=== PATIENT | male | born 1935 | race Caucasian/White ===

== ENCOUNTER 2016-12-13 11:14 | Outpatient (CLI) | payer MEDICARE ==
--- NOTE | 2016-12-14 08:08 | XRAY Report ---
RIGHT KNEE, THREE VIEWS: 12/13/2016 CLINICAL HISTORY: Joint pain for six months. FINDINGS: Soft tissues demonstrate at least 10 small soft tissue ossifications within the medial pos terior aspect of the right knee. They vary in size from a few millimeters to 8 mm. They most likely represent small loose bodies. Minimal spurring is seen along the posterior superior aspect of the p atella. Mild medial joint space narrowing is noted. IMPRESSION: 1. MULTIPLE SMALL LOOSE BODIES ARE SEEN IN THE MEDIAL POSTERIOR ASPECT OF THE RIGHT KNEE. THEY VARY IN SIZE FROM A FEW MILLIMETERS TO 8 MM. 2. MILD OSTEOARTHRITIS IS NOTED OF THE RIGHT KNEE, ESPECIALLY THE MEDIAL FEMORAL COMPARTMENT. 18:9:06 JOB #: [id number] EXT JOB #:[id number]
== END 2016-12-13 11:15 | disposition home or self-care (01) ==
LOC: DI 11:14
PROVIDERS: ATTEND Internal Medicine
DX: M17.11 Unilateral primary osteoarthritis, right knee (principal); M23.41 Loose body in knee, right knee

== ENCOUNTER 2017-01-27 09:22 | Outpatient (CLI) | payer MEDICARE ==
[2017-01-27 13:12] LABS: BASOPHILS # (AUTO) 0.1 10^3/uL (0.0-0.1); EOSINOPHILS # (AUTO) 0.1 10^3/uL (0.0-0.7); EOSINOPHILS % (AUTO) 1.8 %; HCT - HEMATOCRIT 46.4 % (42.0-52.0); HGB - HEMOGLOBIN 15.7 g/dL (14.0-18.0); LYMPHOCYTES % (AUTO) 35.2 %; MEAN CORPUSCULAR HEMOGLOBIN 30.7 pg (27.0-31.0); MEAN CORPUSCULAR HGB CONC 33.8 g/dL (32.0-36.0); MEAN CORPUSCULAR VOLUME 90.8 fL (80.0-94.0); MEAN PLATELET VOLUME 8.2 fL (7.4-11.4); MONOCYTES # (AUTO) 0.6 10^3/uL (0.0-1.0); MONOCYTES % (AUTO) 10.3 %; NEUTROPHILS % (AUTO) 51.7 %; RED BLOOD COUNT 5.11 10^6/uL (4.70-6.10); UNCORRECTED WHITE BLOOD COUNT 5.8 x10^3/uL; WHITE BLOOD COUNT 5.8 x10^3/uL (4.8-10.8)
[2017-01-27 13:27] LABS: ALBUMIN/GLOBULIN RATIO 1.5 (1.0-2.2); BILIRUBIN,TOTAL 0.8 mg/dL (0.2-1.0); BUN - BLOOD UREA NITROGEN 20 mg/dL (6-20); CALCIUM 9.7 mg/dL (8.5-10.3); CARBON DIOXIDE - CO2 26 mmol/L (21-32); CHLORIDE 104 mmol/L (101-111); CHOL/HDL RATIO 6.3 (<5.0); CHOLESTEROL 232 mg/dL; CREATININE 1.1 mg/dL (0.6-1.2); GFR - MDRD 64 (>89); GLUCOSE 104 mg/dL (70-100); HDL CHOLESTEROL 37 mg/dL; POTASSIUM 4.2 mmol/L (3.5-5.0); SODIUM 138 mmol/L (135-145); TOTAL PROTEIN 7.6 g/dL (6.7-8.2); TRIGLYCERIDES 478 mg/dL
[2017-01-27 13:39] LABS: HEMOGLOBIN A1C 0.72 g/dL
[2017-01-27 13:49] LABS: LDL CHOLESTEROL,DIRECT 112 mg/dL
== END 2017-01-27 09:23 | disposition home or self-care (01) ==
LOC: LAB.R 09:22
PROVIDERS: ATTEND Internal Medicine
DX: Z12.5 Encounter for screening for malignant neoplasm of prostate (principal); I10 Essential (primary) hypertension; Z79.899 Other long term (current) drug therapy; E78.2 Mixed hyperlipidemia
CPT/HCPCS: 80053; 80061; 83036; 83721; 85025; G0103; 84153

== ENCOUNTER 2017-04-28 10:16 | Day surgery (SDC) | payer MEDICARE ==
[~2017-04-28 10:16] MED LIST: BRIMONIDINE 0.2% OPHTH DROPS 5 ML ONE; TIMOLOL 0.5% OPHTH DROPS ONE
[2017-04-28] MEDS: LACTATED RINGERS 500 ML IV ONE (10:29)
[2017-04-28] MEDS: PHENYLEPHRINE 2.5% OPHTH 2 ML DROPS ONE (10:34)
[2017-04-28] MEDS: CYCLOPENTOLATE 1% OPHTH DROPS 2 ML ONE (10:34)
[2017-04-28] MEDS: PROPARACAINE 0.5% OPHTH DROPS 15 ML ONE (10:34)
[2017-04-28] MEDS: KETOROLAC 0.45% OPHTH DROPS ONE (10:34)
[2017-04-28] MEDS ORDERED: MIDAZOLAM 2 MG/2 ML VIAL IVP ONE (11:25)
[2017-04-28] MEDS: PROPARACAINE 0.5% OPHTH DROPS 15 ML RIGHTEYE ONE (11:25)
[2017-04-28] MEDS: EPINEPHrine 1 MG/ML AMP IVP ONE (11:26)
[2017-04-28] MEDS: BRIMONIDINE 0.2% OPHTH DROPS 5 ML OPTH ONE (11:26)
[2017-04-28] MEDS: CHONDR SULF/HYALURONATE SYRINGE IO ONE (11:27)
[2017-04-28] MEDS: TRIAMCIN/MOXIFLOX/VANCO 1 ML VIAL IO ONE (11:27)
[2017-04-28] MEDS: BSS/LIDOCAINE/EPINEPHRINE 1 ML SYRINGE IO ONE (11:27)
[2017-04-28] MEDS: TIMOLOL 0.5% OPHTH DROPS OPTH ONE (11:27)
[2017-04-28 12:07] VITALS: BP 127/84
--- NOTE | 2017-04-28 12:38 | OPERATIVE REPORT ---
DATE OF SURGERY: 04/28/2017 00:00:00 PREOPERATIVE DIAGNOSIS: Complex, visually significant cataract, right eye. Complex due to the use of Flomax causing an unstable iris and a small pupil. A Malyugin ring was used to dilate and stabilize the iris. Cataract surgery was performed on his left eye in [address] Gr. POSTOPERATIVE DIAGNOSIS: Complex, visually significant cataract, right eye. Complex due to the use of Flomax causing an unstable iris and a small pupil. A Malyugin ring was used to dilate and stabilize the iris. Cataract surgery was performed on his left eye in [address] Gr. NAME OF PROCEDURE: Phacoemulsification posterior chamber intraocular lens implant, right eye. SURGEON: Cruz Pyle MD ANESTHESIA: Monitored anesthesia care. COMPLICATIONS: None. OPERATIVE INDICATIONS: This is an 81-year-old man with progressive vision loss in the right eye due to 3+ nuclear sclerotic and macular cataract. Best corrected visual acuity was 20/40 with glare to 20/630 in the right eye. Indications for surgery were difficulty driving in low light or at night, difficulty driving at night because of headlights from other vehicles and/or street lights, and difficulty with glare or bright lights in any situation. He was consented at length concerning the risks and benefits of cataract surgery after which he expressed a desire to proceed with surgery. OPERATIVE PROCEDURE: The patient was taken into OR #3 and placed under monitored anesthesia care. A surgical time-out was conducted confirming correct patient, correct procedure and correct surgical site. He was given topical anesthesia and then prepped and draped in the usual sterile fashion. The eye was entered at the 12 and 9 o'clock positions. Intracameral Shugarcaine was injected into the anterior chamber followed by Viscoat. A 7.0 mm Malyugin ring was then injected into the anterior chamber and engaged the pupil at 4 points to stabilize the iris. A continuous tear curvilinear capsulorrhexis was performed. The nucleus was hydrodissected and phacoemulsified. The cortex was evacuated using automated infusion and aspiration. Provisc was injected into the capsular bag and a 20.0 Diopter intraocular lens was inserted into the bag. The Malyugin ring was then disengaged from the pupil margin and removed from the anterior chamber. Approximately 0.7 mL of a mixture of triamcinolone, moxifloxacin, and vancomycin was injected subconjunctivally in the superior quadrant for infection and inflammation prophylaxis. I/A was used to evacuate the viscoelastic materials. The eye was inflated to physiologic pressure using balanced salt solution and found to be watertight. The patient was taken from the operating room in good condition and given postoperative instructions. JOB #: [id number] EXT JOB #:[id number] MTDTerri
== END 2017-04-28 10:17 | disposition home or self-care (01) ==
LOC: SDS 10:16
PROVIDERS: ATTEND Ophthalmology
PROC: 08RJ3JZ Replacement of Right Lens with Synthetic Substitute, Percutaneous Approach (ICD-10-PCS; principal; 2017-04-28 11:30)
DX: H25.11 Age-related nuclear cataract, right eye (principal); N40.0 Benign prostatic hyperplasia without lower urinary tract symptoms; H40.1130 Primary open-angle glaucoma, bilateral, stage unspecified; Z79.899 Other long term (current) drug therapy
CPT/HCPCS: 66982; A9270; J3490; V2632

== ENCOUNTER 2018-02-22 09:30 | Outpatient (CLI) | payer MEDICARE ==
[2018-02-22 17:25] LABS: BASOPHILS % (AUTO) 0.9 %; EOSINOPHILS # (AUTO) 0.1 10^3/uL (0.0-0.7); EOSINOPHILS % (AUTO) 2.2 %; HGB - HEMOGLOBIN 15.9 g/dL (14.0-18.0); LYMPHOCYTES # (AUTO) 1.9 10^3/uL (1.5-3.5); LYMPHOCYTES % (AUTO) 36.4 %; MEAN CORPUSCULAR HEMOGLOBIN 30.9 pg (27.0-31.0); MEAN CORPUSCULAR HGB CONC 33.6 g/dL (32.0-36.0); MONOCYTES # (AUTO) 0.5 10^3/uL (0.0-1.0); MONOCYTES % (AUTO) 9.5 %; NEUTROPHILS # (AUTO) 2.7 10^3/uL (1.5-6.6); PLT - PLATELET COUNT 180 10^3/uL (130-450); RED BLOOD COUNT 5.14 10^6/uL (4.70-6.10); RED CELL DISTRIBUTION WIDTH 14.4 % (12.0-15.0); WHITE BLOOD COUNT 5.2 x10^3/uL (4.8-10.8)
[2018-02-22 17:45] LABS: ALBUMIN 4.4 g/dL (3.2-5.5); ALBUMIN/GLOBULIN RATIO 1.4 (1.0-2.2); ALKALINE PHOSPHATASE 54 IU/L (42-121); ALT ALANINE AMINOTRANSFERASE 27 IU/L (10-60); AST ASPARTATE AMINOTRANSFERASE 18 IU/L (10-42); BILIRUBIN,TOTAL 0.7 mg/dL (0.2-1.0); BUN - BLOOD UREA NITROGEN 24 mg/dL (6-20); CALCIUM 9.4 mg/dL (8.5-10.3); CARBON DIOXIDE - CO2 26 mmol/L (21-32); CHLORIDE 102 mmol/L (101-111); CHOL/HDL RATIO 5.9 (<5.0); CHOLESTEROL 224 mg/dL; CREATININE 1.1 mg/dL (0.6-1.2); GFR - MDRD 64 (>89); GLUCOSE 114 mg/dL (70-100); HDL CHOLESTEROL 38 mg/dL; LDL CHOLESTEROL,CALCULATED 110 mg/dL; LDL/HDL RATIO 2.9 (<3.6); SODIUM 135 mmol/L (135-145); TOTAL PROTEIN 7.6 g/dL (6.7-8.2); VLDL CHOLESTEROL 76 mg/dL
== END 2018-02-22 09:31 | disposition home or self-care (01) ==
LOC: LAB.F 09:30
PROVIDERS: ATTEND Internal Medicine
DX: I10 Essential (primary) hypertension (principal); N40.2 Nodular prostate without lower urinary tract symptoms; E78.5 Hyperlipidemia, unspecified; Z12.5 Encounter for screening for malignant neoplasm of prostate
CPT/HCPCS: 36415; 80053; 80061; 83721; 84153; 85025

== ENCOUNTER 2018-03-02 13:45 | Outpatient (CLI) | payer MEDICARE ==
[2018-03-02 18:49] LABS: HB2 TOTAL 16.5 g/dL; HEMOGLOBIN A1C 0.61 g/dL; HEMOGLOBIN A1C % 5.5 % (4.6-6.2)
== END 2018-03-02 13:46 | disposition home or self-care (01) ==
LOC: LAB.F 13:45
PROVIDERS: ATTEND Internal Medicine
DX: R73.9 Hyperglycemia, unspecified (principal); E78.5 Hyperlipidemia, unspecified
CPT/HCPCS: 36415; 83036; 83721

== ENCOUNTER 2018-06-14 09:35 | Outpatient (CLI) | payer MEDICARE ==
[2018-06-14 11:59] LABS: BASOPHILS # (AUTO) 0.1 10^3/uL (0.0-0.1); BASOPHILS % (AUTO) 0.9 %; EOSINOPHILS # (AUTO) 0.1 10^3/uL (0.0-0.7); HGB - HEMOGLOBIN 15.1 g/dL (14.0-18.0); LYMPHOCYTES # (AUTO) 1.6 10^3/uL (1.5-3.5); MEAN CORPUSCULAR HEMOGLOBIN 30.5 pg (27.0-31.0); MEAN CORPUSCULAR HGB CONC 33.7 g/dL (32.0-36.0); MEAN CORPUSCULAR VOLUME 90.5 fL (80.0-94.0); MEAN PLATELET VOLUME 8.6 fL (7.4-11.4); MONOCYTES # (AUTO) 0.9 10^3/uL (0.0-1.0); MONOCYTES % (AUTO) 12.1 %; NEUTROPHILS # (AUTO) 4.7 10^3/uL (1.5-6.6); PLT - PLATELET COUNT 152 10^3/uL (130-450); RED BLOOD COUNT 4.97 10^6/uL (4.70-6.10); RED CELL DISTRIBUTION WIDTH 14.6 % (12.0-15.0); WHITE BLOOD COUNT 7.4 x10^3/uL (4.8-10.8)
[2018-06-14 12:15] LABS: ALBUMIN 4.2 g/dL (3.2-5.5); ALBUMIN/GLOBULIN RATIO 1.3 (1.0-2.2); BILIRUBIN,TOTAL 0.8 mg/dL (0.2-1.0); CALCIUM 9.1 mg/dL (8.5-10.3); CRP - C-REACTIVE PROTEIN 1.6 mg/dL (0-1.0); TOTAL PROTEIN 7.5 g/dL (6.7-8.2)
== END 2018-06-14 23:59 | disposition home or self-care (01) ==
LOC: LAB.R 09:35
PROVIDERS: ATTEND Physician Assistant Medical
DX: R11.0 Nausea (principal)
CPT/HCPCS: 80053; 83690; 85025; 85651; 86140

== ENCOUNTER 2018-06-28 08:00 | Outpatient (CLI) | payer MEDICARE | END 2018-06-28 23:59 | disposition home or self-care (01) | LOC: LAB.R 08:00 | PROVIDERS: ATTEND Physician Assistant Medical | DX: N30.00 Acute cystitis without hematuria (principal) | CPT/HCPCS: 87086; 87181 ==

== ENCOUNTER 2018-06-30 10:25 | Outpatient (CLI) | payer MEDICARE ==
[2018-06-30] MEDS ORDERED: IOVERSOL 320 50 ML VIAL ONE (10:44)
[2018-06-30] MEDS ORDERED: IOVERSOL 320 100 ML VIAL IVP ONE ×2 (10:44→12:00)
[2018-06-30] MEDS ORDERED: IOVERSOL 320 50 ML VIAL PO ONE (12:00)
--- NOTE | 2018-06-30 12:57 | CT Report ---
Reason: ELEVATED C-REACTIVE PROTEIN,NAUSEA WITH DRY HEAVES Procedure Date: 06/30/2018 Accession Number: [id number] / [id number] Procedure: CT - Abdomen/Pelvis W/ CPT Code: FULL RESULT: EXAM: CT ABDOMEN AND PELVIS EXAM DATE: 06/30/2018 11:45 AM. CLINICAL HISTORY: Elevated C-reactive protein, nausea with dry heaves. COMPARISONS: None. TECHNIQUE: Routine helical CT imaging was performed through the abdomen and pelvis. IV contrast: Opti-320 80 ml. Enteric contrast: Yes. Reconstructions: Coronal and sagittal. In accordance with CT protocol optimization, one or more of the following dose reduction techniques were utilized for this exam: automated exposure control, adjustment of mA and/or KV based on patient size, or use of iterative reconstructive technique. FINDINGS: Lung Bases: Unremarkable. Liver: Normal. No masses. Gallbladder/Bile Ducts: Status post cholecystectomy. Spleen: Normal. Pancreas: Normal. Adrenal Glands: Normal. Kidneys: Bilateral renal cysts and hypodensities which are too small to characterize. No hydronephrosis. Peritoneal Cavity/Bowel: Sigmoid diverticulosis without diverticulitis. No free fluid, free air or adenopathy. No masses or acute inflammatory process. What is felt to represent the appendix is well visualized and normal. Pelvic Organs: There is marked prostatic hypertrophy with distention of the urinary bladder suggestive of the possibility of bladder outlet obstruction, 9.0 x 6.7 x 5.4 cm. The patient is likely status post plug mesh repair of a prior left inguinal hernia. There is sigmoid diverticulosis without diverticulitis. The bladder and visualized pelvic organs are within normal limits. Vasculature: Atherosclerosis without calderon aneurysm. Bones: No significant abnormality. Other: None. IMPRESSION: Marked prostatic hypertrophy, question bladder outlet obstruction. Correlate to symptomatology. RADIA
== END 2018-06-30 10:26 | disposition home or self-care (01) ==
LOC: DI 10:25
PROVIDERS: ATTEND Physician Assistant Medical
DX: N40.0 Benign prostatic hyperplasia without lower urinary tract symptoms (principal)
CPT/HCPCS: 74177; Q9967

== ENCOUNTER 2018-07-06 13:18 | Emergency (ER) | payer MEDICARE ==
--- NOTE | 2018-07-06 17:38 | ED Physician Documentation ---
History of Present Illness - Stated complaint Stated Complaint: DR GOMES - Chief complaint Chief Complaint: Abd Pain - History obtained from History obtained from: Patient - History of Present Illness Timing: How many days ago (several days ago) Pain level max: 2 Pain level now: 0 Improved by: nothing Worsened by: nothing - Additonal information Additional information: Patient is an 83-year-old male with left inguinal swelling. States he is concerned about a hernia. States occasionally has discomfort, none currently. States he told his doctor who told him to come to the emergency department. No vomiting. No pain. Review of Systems Ten Systems: 10 systems reviewed and negative Constitutional: denies: Fever, Chills Ears: denies: Ear pain Nose: denies: Rhinorrhea / runny nose, Congestion Throat: denies: Sore throat Cardiac: denies: Chest pain / pressure Respiratory: denies: Cough GI: denies: Abdominal Pain, Nausea, Vomiting, Diarrhea Skin: denies: Rash Musculoskeletal: denies: Neck pain, Back pain Neurologic: denies: Headache PD PAST MEDICAL HISTORY - Past Medical History Cardiovascular: None Respiratory: None Endocrine/Autoimmune: None GI: None : Benign prostate hypertrophy HEENT: Glaucoma Psych: None Musculoskeletal: Osteoarthritis Derm: None - Past Surgical History General: Cholecystectomy, Colonoscopy - Present Medications Home Medications: Ambulatory Orders Medication Instructions Recorded Confirmed Brimonidine 0.1% Ophth Drops 75 drops EACHEYE DAILY 04/27/17 04/27/17 [Alphagan P 0.1% Ophth Drops] Finasteride [Propecia] 5 mg PO DAILY 04/27/17 04/27/17 Tamsulosin [Flomax] 0.4 mg PO DAILY 04/27/17 04/27/17 Timolol 0.25% Ophth Drops 75 drops EACHEYE DAILY 04/27/17 04/27/17 [Timoptic 0.25% Ophth Drops] - Allergies Allergies/Adverse Reactions: Allergies Allergy/AdvReac Type Severity Reaction Status Date / Time No Known Drug Allergies Allergy Verified 07/06/18 14:00 PD ED PE NORMAL - Vitals Vital signs reviewed: Yes - General General: Alert and oriented X 3, No acute distress - HEENT HEENT: Moist mucous membranes - Cardiac Cardiac: RRR - Respiratory Respiratory: No respiratory distress, Clear bilaterally - Abdomen Abdomen: Soft, Non tender, Non distended - Male Male : Other (Left inguinal hernia, easily reduced. No pain) - Derm Derm: Warm and dry - Neuro Neuro: Alert and oriented X 3 Results - Vitals Vitals: Vital Signs - 24 hr 07/06/18 07/06/18 07/06/18 13:58 16:14 17:42 Temperature 36.7 C 36.4 C L 36.6 C Heart Rate 52 L 57 L 62 Respiratory 18 12 18 Rate Blood Pressure 118/66 152/59 H 128/90 H O2 Saturation 100 98 97 Oxygen O2 Source Room air PD MEDICAL DECISION MAKING - ED course Complexity details: considered differential, d/w patient ED course: Patient with an easily reducible left inguinal hernia. No evidence of incarceration or strangulation. We will have him follow-up with his doctor for further care. Patient counseled regarding signs and symptoms for which I believe and urgent re-evaluation would be necessary. Patient with good understanding of and agreement to plan and is comfortable going home at this time This document was made in part using voice recognition software. While efforts are made to proofread this document, sound alike and grammatical errors may occur. Departure - Departure Disposition: 01 Home, Self Care Clinical Impression: Inguinal hernia, left Condition: Good Instructions: ED Hernia Inguinal Follow-Up: Marcial Bolton MD [Primary Care Provider] - Kole Nath MD [Provider Admit Priv/Credential] - Within 1 week Comments: follow up with your doctor for further care. Return if you worsen especially for severe pain. Discharge Date/Time: 07/06/18 17:56
[2018-07-06 17:47] VITALS: BP 128/90
== END 2018-07-06 17:56 | disposition home or self-care (01) ==
LOC: ED 13:18
DX: K40.90 Unilateral inguinal hernia, without obstruction or gangrene, not specified as recurrent (principal)
CPT/HCPCS: 99283

== ENCOUNTER 2018-07-12 14:38 | Outpatient (CLI) | payer MEDICARE ==
[2018-07-12 14:54] LABS: BASOPHILS # (AUTO) 0.1 10^3/uL (0.0-0.1); BASOPHILS % (AUTO) 1.1 %; EOSINOPHILS # (AUTO) 0.2 10^3/uL (0.0-0.7); EOSINOPHILS % (AUTO) 3.8 %; HGB - HEMOGLOBIN 16.3 g/dL (14.0-18.0); LYMPHOCYTES # (AUTO) 1.9 10^3/uL (1.5-3.5); LYMPHOCYTES % (AUTO) 33.8 %; MEAN CORPUSCULAR HGB CONC 32.3 g/dL (32.0-36.0); MEAN CORPUSCULAR VOLUME 92.7 fL (80.0-94.0); MEAN PLATELET VOLUME 7.5 fL (7.4-11.4); MONOCYTES # (AUTO) 0.5 10^3/uL (0.0-1.0); MONOCYTES % (AUTO) 8.5 %; NEUTROPHILS % (AUTO) 52.8 %; PLT - PLATELET COUNT 174 10^3/uL (130-450); RED BLOOD COUNT 5.44 10^6/uL (4.70-6.10); RED CELL DISTRIBUTION WIDTH 14.5 % (12.0-15.0); WHITE BLOOD COUNT 5.6 x10^3/uL (4.8-10.8)
[2018-07-12 15:27] LABS: ALBUMIN 4.6 g/dL (3.2-5.5); ALBUMIN/GLOBULIN RATIO 1.3 (1.0-2.2); BILIRUBIN,TOTAL 0.9 mg/dL (0.2-1.0); CALCIUM 9.9 mg/dL (8.5-10.3); CREATININE 0.9 mg/dL (0.6-1.2); TOTAL PROTEIN 8.1 g/dL (6.7-8.2)
[2018-07-12 15:38] LABS: BILIRUBIN,URINE NEGATIVE (NEGATIVE); GLUCOSE, URINE (UA) NEGATIVE (NEGATIVE); KETONES,URINE (UA) NEGATIVE (NEGATIVE); LEUKOCYTE ESTERASE, URINE NEGATIVE (NEGATIVE); NITRITE,URINE NEGATIVE (NEGATIVE); OCCULT BLOOD,URINE NEGATIVE (NEGATIVE); PROTEIN,URINE NEGATIVE (NEGATIVE); UROBILINOGEN,URINE 0.2 (NORMAL) E.U./dL (NORMAL)
[2018-07-12 16:04] LABS: BACTERIA,URINE None Seen /HPF (None Seen); CLARITY,URINE CLEAR (CLEAR); RBC,URINE None Seen /HPF (0-5); SQUAMOUS EPITHELIAL CELL,UR NONE SEEN (<= Few)
== END 2018-07-12 14:39 | disposition home or self-care (01) ==
LOC: LAB 14:38
PROVIDERS: ATTEND Internal Medicine Gastroenterology
DX: N39.0 Urinary tract infection, site not specified (principal); N40.0 Benign prostatic hyperplasia without lower urinary tract symptoms; K40.90 Unilateral inguinal hernia, without obstruction or gangrene, not specified as recurrent; H40.9 Unspecified glaucoma; I10 Essential (primary) hypertension
CPT/HCPCS: 36415; 80053; 81001; 85025; 87086; 93005

== ENCOUNTER 2018-07-31 07:19 | Day surgery (SDC) | payer MEDICARE ==
[2018-07-31] MEDS ORDERED: BUPIVACAINE 0.5% PF 30 ML VIAL ONE (07:23)
[2018-07-31] MEDS ORDERED: LIDOCAINE 1%-EPI 1:100000 30 ML MDV ONE (07:23)
[2018-07-31] MEDS ORDERED: LACTATED RINGERS 1,000 ML IV ONE ×2 (07:24→09:40)
--- NOTE | 2018-07-31 07:33 | ANESTHESIA ---
Pre-Anesthesia VS, & Labs - Diagnosis L inguinal hernia - Procedure L inguinal hernia repair Height 5 ft 10 in Body Mass Index 23.6 - NPO >8 hours - Lab Results Lab results reviewed: Yes Home Medications and Allergies Home Medications: Ambulatory Orders Latanoprost 0.005% Ophth Drops [Xalatan Ophth Drops] 1 drops EACHEYE DAILY 07/14/18 Brimonidine 0.1% Ophth Drops [Alphagan P 0.1% Ophth Drops] 1 drops EACHEYE BID 04/27/17 Finasteride [Propecia] 5 mg PO DAILY 04/27/17 Tamsulosin [Flomax] 0.4 mg PO DAILY 04/27/17 Timolol 0.25% Ophth Drops [Timoptic 0.25% Ophth Drops] 1 drops EACHEYE DAILY 04/27/17 Glucosamine/Chondro Aguirre A [Glucosamine-Chondroitin Tab] 1 each PO BID 07/14/18 Latanoprost 0.005% Ophth Drops [Xalatan Ophth Drops] 1 drops EACHEYE DAILY 07/14/18 Allergies/Adverse Reactions: Allergies Allergy/AdvReac Type Severity Reaction Status Date / Time No Known Drug Allergies Allergy Verified 07/31/18 07:36 Anes History & Medical History - Anesthetic History Anesthesia Complications: reports: No previous complications Family history of Anesthesia Complications: Denies Family history of Malignant Hyperthermia: Denies - Medical History Cardiovascular: reports: None Pulmonary: reports: None Gastrointestinal: reports: GERD, Hiatal hernia, Colon polyps Urinary: reports: Benign prostate hypertrophy Musculoskeletal: reports: Osteoarthritis Endocrine/Autoimmune: reports: None Skin: reports: None Smoking Status: Never smoker - Surgical History General: Cholecystectomy, Colonoscopy Eyes Ears Nose Throat (EENT): Cataracts Exam General: Alert, Oriented x3, Cooperative Dental: WNL Mouth Openin Fingerbreadth Neck Mobility: Normal Mallampati classification: II Thyromental Distance: 4-6 cm Respiratory: Lungs clear, Normal breath sounds Cardiovascular: Regular rate Neurological: Normal speech Mental/Cognitive Status: Alert/Oriented X3, Normal for patient Plan Anesthesia Type: MAC Consent for Procedure(s) Verified and Reviewed: Yes Code Status: Attempt Resuscitation ASA classification: 2-Mild systemic disease Is this case an emergency?: No
[2018-07-31] MEDS ORDERED: ceFAZolin 2 GM/50 ML 2 GM/50 ML BAG IV ONE (07:34)
[2018-07-31] MEDS ORDERED: PROPOFOL 1000 MG/100 ML 100 ML IV ONE (08:30)
[2018-07-31] MEDS ORDERED: KETAMINE 500 MG/10 ML VIAL IVP ONE (08:30)
[2018-07-31] MEDS ORDERED: KETOROLAC 30 MG/ML VIAL IVP ONE (08:30)
[2018-07-31] MEDS ORDERED: MIDAZOLAM 2 MG/2 ML VIAL IVP ONE (08:30)
[2018-07-31] MEDS ORDERED: IBUPROFEN 600 MG TABLET PO PRN (10:48)
[2018-07-31] MEDS ORDERED: ACETAMINOPHEN 325 MG TABLET PO PRN (10:48)
[2018-07-31] MEDS ORDERED: oxyCODONE 5 MG TABLET PO PRN (10:48)
[2018-07-31] MEDS ORDERED: ONDANSETRON 4 MG/2 ML VIAL IVP PRN (10:48)
--- NOTE | 2018-07-31 11:19 | OPERATIVE REPORT ---
DATE OF SERVICE: 07/31/2018 Physician: Kole Nath MD PREOPERATIVE DIAGNOSIS: Symptomatic left inguinal hernia. POSTOPERATIVE DIAGNOSES 1. Symptomatic left inguinal hernia. 2. Left cord lipoma. PROCEDURES PERFORMED 1. Open repair of left inguinal hernia with polypropylene mesh. 2. Excision of left cord lipoma. ANESTHESIA: Local plus monitored anesthesia care by Ruslan Kline CRNA. SURGEON: Kole Nath MD ESTIMATED BLOOD LOSS: 10 mL. COMPLICATIONS: None. FINDINGS: Moderate-sized indirect left inguinal hernia was present. There was no evidence of direct or femoral hernia. A moderate sized cord lipoma was present. INDICATIONS: Patient is an 83-year-old gentleman with a recent onset of a painful reducible left groin bulge. Examination revealed a left inguinal hernia. He was advised to undergo repair under local anesthesia with sedation to minimize perioperative risk. PROCEDURE: After informed consent, the patient was taken to the operating room, where he was sedated and monitored. Preoperative preparation included application of sequential calf compression boots, administration of 2 grams of cefazolin intravenously within an hour of the incision. His left groin had been clipped, and was prepared with iodoform solution, following which a left groin block was instituted using a 50:50 combination of 1% lidocaine plain and 0.5% Marcaine with epinephrine. A total of 30 mL of the mixture was used. The left groin was then re-prepared with ChloraPrep solution and draped in the usual sterile fashion. A transverse incision was made in the skin lines of the left groin, beginning just above the left pubic tubercle and extending laterally approximately 5 cm. Hemostasis was achieved with electrocautery and 2-0 Vicryl ties. Incision was carried down through subcutaneous tissues until the external oblique aponeurosis was identified, and was incised along the lines of its fibers, in such a manner as to open the external ring and expose the internal ring. The ilioinguinal nerve was small and was divided to avoid injury and neuralgia. The spermatic cord was mobilized and encircled with a [place] drain. Spermatic cord was dissected, isolating the cord lipoma from surrounding cord structures, where it was excised with electrocautery and discarded. It measured approximately 4 cm in greatest dimension. The indirect sac was similarly dissected from surrounding cord structures to the level of the internal ring, where it was opened, and a finger inserted into the peritoneal cavity. to search for direct and femoral hernias was made, and none was identified. The hernia sac was twisted and doubly highly ligated with 3-0 silk suture ligatures. Excess hernia sac was amputated and discarded. After hemostasis was ensured, the wounds were irrigated with antibiotic solution containing 1 gram cefazolin per liter, following which a precut slotted Bard polypropylene mesh was soaked in antibiotic solution, then placed over the inguinal floor and secured in place circumferentially with continuous 3-0 Prolene suture, securing the mesh to the shelving edge of Poupart's ligament inferiorly, to the internal oblique aponeurosis superolaterally, and to the lateral border of the rectus sheath medially. Care was taken to avoid excessive tightening of the mesh around the cord at the level of the internal ring. After hemostasis was again ensured, the wound was again irrigated with antibiotic solution, following which wound closure was accomplished in layers using continuous 2-0 Vicryl to reapproximate the external oblique aponeurosis overlying the cord, followed by 3-0 Vicryl to reapproximate Antonio's fascia, followed by 4-0 Monocryl subcuticular skin closure, followed by Dermabond. The procedure was then terminated, and the patient transferred out of the operating room in satisfactory condition. Sponge and instrument counts were correct x2, and no drains were used. cc: Marcial Bolton MD TD: 07/31/2018 11:10 REVISED 08/02/2018 [email or web address] Transcrptn text correction Orig. signed 07/31/2018@1401 ROSIE
[2018-07-31 12:12] VITALS: BP 160/82
== END 2018-07-31 07:20 | disposition home or self-care (01) ==
LOC: SDS 07:19
PROVIDERS: ATTEND Internal Medicine Gastroenterology
PROC: 0VBG0ZZ Excision of Left Spermatic Cord, Open Approach (ICD-10-PCS; 2018-07-31)
PROC: 0YU60JZ Supplement Left Inguinal Region with Synthetic Substitute, Open Approach (ICD-10-PCS; principal; 2018-07-31 08:30)
DX: K40.90 Unilateral inguinal hernia, without obstruction or gangrene, not specified as recurrent (principal); D17.6 Benign lipomatous neoplasm of spermatic cord; N40.1 Benign prostatic hyperplasia with lower urinary tract symptoms; R35.1 Nocturia; K21.9 Gastro-esophageal reflux disease without esophagitis; K44.9 Diaphragmatic hernia without obstruction or gangrene; I10 Essential (primary) hypertension; H40.9 Unspecified glaucoma; M17.0 Bilateral primary osteoarthritis of knee; Z87.891 Personal history of nicotine dependence; Z87.440 Personal history of urinary (tract) infections
CPT/HCPCS: 49505; C1781; J0690; J7120

== ENCOUNTER 2020-05-22 08:33 | Outpatient (CLI) | payer MEDICARE ==
[2020-05-22 15:29] LABS: BASOPHILS # (AUTO) 0.1 10^3/uL (0.0-0.1); BASOPHILS % (AUTO) 1.3 %; EOSINOPHILS # (AUTO) 0.1 10^3/uL (0.0-0.7); EOSINOPHILS % (AUTO) 2.7 %; LYMPHOCYTES # (AUTO) 1.8 10^3/uL (1.5-3.5); LYMPHOCYTES % (AUTO) 33.8 %; MEAN CORPUSCULAR HEMOGLOBIN 31.6 pg (27.0-31.0); MEAN CORPUSCULAR HGB CONC 33.4 g/dL (32.0-36.0); MEAN CORPUSCULAR VOLUME 94.5 fL (80.0-94.0); MEAN PLATELET VOLUME 10.1 fL (7.4-11.4); MONOCYTES # (AUTO) 0.5 10^3/uL (0.0-1.0); MONOCYTES % (AUTO) 10.3 %; NEUTROPHILS # (AUTO) 2.7 10^3/uL (1.5-6.6); NEUTROPHILS % (AUTO) 51.7 %; PLT - PLATELET COUNT 174 10^3/uL (130-450); RED BLOOD COUNT 5.07 10^6/uL (4.70-6.10); RED CELL DISTRIBUTION WIDTH 13.8 % (12.0-15.0); WHITE BLOOD COUNT 5.3 x10^3/uL (4.8-10.8)
[2020-05-22 15:53] LABS: ALBUMIN 4.6 g/dL (3.2-5.5); ALBUMIN/GLOBULIN RATIO 1.5 (1.0-2.2); ALKALINE PHOSPHATASE 53 IU/L (42-121); ALT ALANINE AMINOTRANSFERASE 36 IU/L (10-60); AST ASPARTATE AMINOTRANSFERASE 25 IU/L (10-42); BILIRUBIN,TOTAL 0.5 mg/dL (0.2-1.0); BUN - BLOOD UREA NITROGEN 21 mg/dL (6-20); CALCIUM 9.9 mg/dL (8.5-10.3); CARBON DIOXIDE - CO2 27 mmol/L (21-32); CHLORIDE 102 mmol/L (101-111); CHOL/HDL RATIO 6.6 (<5.0); CHOLESTEROL 249 mg/dL; GLUCOSE 106 mg/dL (70-100); HDL CHOLESTEROL 38 mg/dL; LDL CHOLESTEROL,CALCULATED 136 mg/dL; LDL/HDL RATIO 3.6 (<3.6); SODIUM 137 mmol/L (135-145); TOTAL PROTEIN 7.7 g/dL (6.7-8.2); VLDL CHOLESTEROL 75 mg/dL
== END 2020-05-22 08:34 | disposition home or self-care (01) ==
LOC: LAB.S 08:33
PROVIDERS: ATTEND Internal Medicine
DX: I10 Essential (primary) hypertension (principal); N40.2 Nodular prostate without lower urinary tract symptoms
CPT/HCPCS: 36415; 80053; 80061; 83721; 84153; 85025

== ENCOUNTER 2020-12-12 08:00 | Outpatient (CLI) | payer MEDICARE ==
[2020-12-12 20:31] LABS: FECAL OCCULT BLOOD (FIT) POSITIVE (NEGATIVE)
== END 2020-12-12 23:59 | disposition home or self-care (01) ==
LOC: LAB.R 08:00
PROVIDERS: ATTEND Internal Medicine
DX: Z12.11 Encounter for screening for malignant neoplasm of colon (principal)
CPT/HCPCS: 82274

== ENCOUNTER 2021-03-27 07:20 | Day surgery (SDC) | payer MEDICARE ==
[~2021-03-27 07:20] MED LIST changes: -BRIMONIDINE 0.2% OPHTH DROPS 5 ML ONE; +PROPOFOL 500 MG/50 ML 500 MG/50 ML VIAL ONE; -TIMOLOL 0.5% OPHTH DROPS ONE
[2021-03-27] MEDS ORDERED: LACTATED RINGERS 1,000 ML IV ONE (07:27)
--- NOTE | 2021-03-27 08:30 | ANESTHESIA ---
Pre-Anesthesia VS, & Labs - Diagnosis hx polyps - Procedure colonoscopy Vital Signs: Temp Pulse Resp BP Pulse Ox 36.4 C L 60 16 149/94 H 100 03/27/21 07:28 03/27/21 07:28 03/27/21 07:28 03/27/21 07:28 03/27/21 07:28 Height: 5 ft 10 in Weight (kg): 71.7 kg Body Mass Index: 22.6 BMI Classification: Healthy weight - NPO >8 hours Home Medications and Allergies Home Medications: Ambulatory Orders Magnesium 1 tab PO DAILY 03/26/21 Brimonidine 0.1% Ophth Drops [Alphagan P 0.1% Ophth Drops] 1 drops EACHEYE BID 04/27/17 Finasteride [Propecia] 5 mg PO DAILY 04/27/17 Tamsulosin [Flomax] 0.4 mg PO DAILY 04/27/17 Timolol 0.25% Ophth Drops [Timoptic 0.25% Ophth Drops] 1 drops EACHEYE DAILY 04/27/17 Latanoprost 0.005% Ophth Drops [Xalatan Ophth Drops] 1 drops EACHEYE DAILY 07/14/18 Magnesium 1 tab PO DAILY 03/26/21 Allergies/Adverse Reactions: Allergies Allergy/AdvReac Type Severity Reaction Status Date / Time No Known Drug Allergies Allergy Verified 03/26/21 11:23 Anes History & Medical History - Anesthetic History Anesthesia Complications: reports: No previous complications Family history of Anesthesia Complications: Denies Family history of Malignant Hyperthermia: Denies - Medical History Cardiovascular: reports: None Pulmonary: reports: None Gastrointestinal: reports: None Urinary: reports: Benign prostate hypertrophy Musculoskeletal: reports: Other Endocrine/Autoimmune: reports: None Skin: reports: None Smoking Status: Never smoker - Surgical History General: reports: Cholecystectomy, Colonoscopy Eyes Ears Nose Throat (EENT): reports: Cataracts Exam General: Alert, Oriented x3, Cooperative Dental: WNL Mouth Openin Fingerbreadth Neck Mobility: Normal Mallampati classification: II Thyromental Distance: 4-6 cm Cardiovascular: Regular rate Neurological: Normal speech Mental/Cognitive Status: Alert/Oriented X3, Normal for patient Cognitive Status: Within normal limits Plan Anesthesia Type: Total IV Consent for Procedure(s) Verified and Reviewed: Yes Code Status: Attempt Resuscitation ASA classification: 2-Mild systemic disease Is this case an emergency?: No
[2021-03-27] MEDS ORDERED: MIDAZOLAM 2 MG/2 ML VIAL ONE (08:36)
[2021-03-27] MEDS ORDERED: ePHEDrine 50 MG/ML VIAL IVP ONE (08:49)
[2021-03-27] MEDS ORDERED: LACTATED RINGERS 600 ML IV ONE (09:09)
[2021-03-27 09:22] VITALS: BP 117/63
--- NOTE | 2021-03-27 14:03 | ANESTHESIA POST OP EVALUATION ---
Anesthesia Post Eval - Post Anesthesia Eval Vitals: Last Vital Signs Temp 36.7 C 03/27/21 09:09 Pulse 60 03/27/21 09:21 Resp 16 03/27/21 09:21 BP 117/63 03/27/21 09:21 Pulse Ox 98 03/27/21 09:21 CV Function Including HR & BP: Stable Pain Control: Satisfactory Nausea & Vomiting: Negative Mental Status: Baseline Respiratory Status: Airway Patent Hydration Status: Satisfactory Anesthesia Complications: None
== END 2021-03-27 07:21 | disposition home or self-care (01) ==
LOC: SDS 07:20
PROVIDERS: ATTEND Surgery
PROC: 0DBM8ZZ Excision of Descending Colon, Via Natural or Artificial Opening Endoscopic (ICD-10-PCS; 2021-03-27)
PROC: 0DBK8ZZ Excision of Ascending Colon, Via Natural or Artificial Opening Endoscopic (ICD-10-PCS; principal; 2021-03-27 08:30)
DX: R19.5 Other fecal abnormalities (principal); D12.4 Benign neoplasm of descending colon; D12.2 Benign neoplasm of ascending colon; K57.30 Diverticulosis of large intestine without perforation or abscess without bleeding; Z87.891 Personal history of nicotine dependence
CPT/HCPCS: 45380; 45385; J7120

== ENCOUNTER 2021-04-09 08:00 | Outpatient (CLI) | payer MEDICARE ==
[2021-04-09 14:30] LABS: BASOPHILS % (AUTO) 0.4 %; EOSINOPHILS # (AUTO) 0.1 10^3/uL (0.0-0.7); EOSINOPHILS % (AUTO) 1.4 %; HCT - HEMATOCRIT 45.2 % (42.0-52.0); HGB - HEMOGLOBIN 15.1 g/dL (14.0-18.0); LYMPHOCYTES # (AUTO) 2.1 10^3/uL (1.5-3.5); LYMPHOCYTES % (AUTO) 26.8 %; MEAN CORPUSCULAR HEMOGLOBIN 30.8 pg (27.0-31.0); MEAN CORPUSCULAR HGB CONC 33.4 g/dL (32.0-36.0); MEAN CORPUSCULAR VOLUME 92.2 fL (80.0-94.0); MEAN PLATELET VOLUME 9.9 fL (7.4-11.4); MONOCYTES # (AUTO) 0.8 10^3/uL (0.0-1.0); MONOCYTES % (AUTO) 10.7 %; NEUTROPHILS # (AUTO) 4.7 10^3/uL (1.5-6.6); NEUTROPHILS % (AUTO) 60.4 %; PLT - PLATELET COUNT 163 10^3/uL (130-450); RED CELL DISTRIBUTION WIDTH 13.2 % (12.0-15.0); WHITE BLOOD COUNT 7.7 x10^3/uL (4.8-10.8)
[2021-04-09 15:04] LABS: CALCIUM 9.5 mg/dL (8.5-10.3); CREATININE 0.9 mg/dL (0.6-1.2); URIC ACID 7.1 mg/dL (2.6-7.2)
== END 2021-04-09 23:59 | disposition home or self-care (01) ==
LOC: LAB.S 08:00
PROVIDERS: ATTEND Emergency Medicine
DX: M10.9 Gout, unspecified (principal)
CPT/HCPCS: 36415; 80048; 84550; 85025

== ENCOUNTER 2022-04-10 08:00 | Outpatient (CLI) | payer MEDICARE ==
[2022-04-10 18:20] LABS: BILIRUBIN,URINE NEGATIVE (NEGATIVE); GLUCOSE, URINE (UA) NEGATIVE (NEGATIVE); KETONES,URINE (UA) NEGATIVE (NEGATIVE); LEUKOCYTE ESTERASE, URINE TRACE (NEGATIVE); NITRITE,URINE NEGATIVE (NEGATIVE); OCCULT BLOOD,URINE NEGATIVE (NEGATIVE); PH,URINE 6.5 PH (5.0-7.5); PROTEIN,URINE NEGATIVE (NEGATIVE); UROBILINOGEN,URINE 0.2 (NORMAL) E.U./dL (NORMAL)
[2022-04-10 18:22] LABS: CLARITY,URINE CLEAR (CLEAR)
[2022-04-10 19:16] LABS: BACTERIA,URINE Moderate /HPF (None Seen); RBC,URINE 0-5 /HPF (0-5); SQUAMOUS EPITHELIAL CELL,UR RARE Squamous (<= Few)
== END 2022-04-10 23:59 | disposition home or self-care (01) ==
LOC: LAB 08:00
PROVIDERS: ATTEND Emergency Medicine
DX: R30.0 Dysuria (principal)
CPT/HCPCS: 81001; 87077; 87086; 87181

== ENCOUNTER 2022-05-05 10:56 | Outpatient (CLI) | payer MEDICARE ==
[2022-05-05 15:08] LABS: BASOPHILS # (AUTO) 0.1 10^3/uL (0.0-0.1); BASOPHILS % (AUTO) 0.8 %; EOSINOPHILS # (AUTO) 0.2 10^3/uL (0.0-0.7); EOSINOPHILS % (AUTO) 2.5 %; HCT - HEMATOCRIT 49.1 % (42.0-52.0); HGB - HEMOGLOBIN 15.9 g/dL (14.0-18.0); MEAN CORPUSCULAR HEMOGLOBIN 30.4 pg (27.0-31.0); MEAN CORPUSCULAR HGB CONC 32.4 g/dL (32.0-36.0); MEAN CORPUSCULAR VOLUME 93.9 fL (80.0-94.0); MONOCYTES # (AUTO) 0.6 10^3/uL (0.0-1.0); MONOCYTES % (AUTO) 10.7 %; NEUTROPHILS # (AUTO) 3.1 10^3/uL (1.5-6.6); NEUTROPHILS % (AUTO) 51.8 %; PLT - PLATELET COUNT 173 10^3/uL (130-450); RED BLOOD COUNT 5.23 10^6/uL (4.70-6.10); RED CELL DISTRIBUTION WIDTH 13.5 % (12.0-15.0); WHITE BLOOD COUNT 5.9 x10^3/uL (4.8-10.8)
[2022-05-05 15:37] LABS: ALBUMIN 4.7 g/dL (3.2-5.5); ALBUMIN/GLOBULIN RATIO 1.5 (1.0-2.2); ALKALINE PHOSPHATASE 51 IU/L (42-121); ALT ALANINE AMINOTRANSFERASE 40 IU/L (10-60); AST ASPARTATE AMINOTRANSFERASE 27 IU/L (10-42); BILIRUBIN,TOTAL 0.7 mg/dL (0.2-1.0); BUN - BLOOD UREA NITROGEN 17 mg/dL (6-20); CARBON DIOXIDE - CO2 28 mmol/L (21-32); CHLORIDE 101 mmol/L (101-111); CHOL/HDL RATIO 6.2 (<5.0); CHOLESTEROL 242 mg/dL; GFR - MDRD 71 (>89); GLUCOSE 102 mg/dL (70-100); HDL CHOLESTEROL 39 mg/dL; POTASSIUM 4.7 mmol/L (3.5-5.0); SODIUM 139 mmol/L (135-145); TOTAL PROTEIN 7.9 g/dL (6.7-8.2); TRIGLYCERIDES 561 mg/dL
[2022-05-05 15:43] LABS: THYROID STIMULATING HORMONE 5.26 uIU/mL (0.34-5.60)
[2022-05-05 15:59] LABS: LDL CHOLESTEROL,DIRECT 91 mg/dL; LDLD/HDL RATIO 2.3 (<3.6)
== END 2022-05-05 10:57 | disposition home or self-care (01) ==
LOC: LAB.S 10:56
PROVIDERS: ATTEND Registered Nurse
DX: R30.0 Dysuria (principal); Z13.29 Encounter for screening for other suspected endocrine disorder; Z13.0 Encounter for screening for diseases of the blood and blood-forming organs and certain disorders involving the immune mechanism; Z13.220 Encounter for screening for lipoid disorders; Z79.899 Other long term (current) drug therapy
CPT/HCPCS: 36415; 80053; 80061; 83721; 84443; 85025

== ENCOUNTER 2022-11-10 21:51 | Outpatient (CLI) | payer MEDICARE | END 2022-11-10 23:59 | disposition critical access hospital (66) | LOC: EMS 21:51 | DX: R42 Dizziness and giddiness (principal); R53.1 Weakness; R47.81 Slurred speech; R00.1 Bradycardia, unspecified; I45.10 Unspecified right bundle-branch block | CPT/HCPCS: A0425; A0429 ==

== ENCOUNTER 2022-11-10 22:12 | Emergency (ER) | payer MEDICARE ==
--- NOTE | 2022-11-10 22:26 | ED Physician Documentation ---
History of Present Illness - Stated complaint Stated Complaint: DIZZY, SLURRED SPEECH, CODE STROKE - History obtained from History obtained from: Patient - Additonal information Additional information: 87yM, Previously healthy, presents to the ED with complaint of dizziness and possible slurred speech per EMS. EMS initially called in a code stroke from the field due to symptom onset of 8 PM.Patient states he was active today and cut the lawn outside and then was at [employer] study when he began to feel lightheaded. AO x3 and asymptomatic in the ED. Patient took mucinex yesterday because he has had cold symptoms and cough productive of yellow phlegm, now resolved. PD PAST MEDICAL HISTORY - Past Medical History Cardiovascular: None Respiratory: None Endocrine/Autoimmune: None GI: None : Benign prostate hypertrophy HEENT: Glaucoma, Chronic sinusitis Psych: None Musculoskeletal: Other Derm: None - Past Surgical History General: Cholecystectomy, Colonoscopy HEENT: Cataracts - Present Medications Home Medications: Ambulatory Orders Medication Instructions Recorded Confirmed Brimonidine 0.1% Ophth Drops 1 drops EACHEYE BID 04/27/17 03/26/21 [Alphagan P 0.1% Ophth Drops] Finasteride [Propecia] 5 mg PO DAILY 04/27/17 03/26/21 Tamsulosin [Flomax] 0.4 mg PO DAILY 04/27/17 03/26/21 Timolol 0.25% Ophth Drops 1 drops EACHEYE DAILY 04/27/17 03/26/21 [Timoptic 0.25% Ophth Drops] Latanoprost 0.005% Ophth Drops 1 drops EACHEYE DAILY 07/14/18 03/26/21 [Xalatan Ophth Drops] Magnesium 1 tab PO DAILY 03/26/21 03/26/21 - Allergies Allergies/Adverse Reactions: Allergies Allergy/AdvReac Type Severity Reaction Status Date / Time No Known Drug Allergies Allergy Verified 11/10/22 22:27 - Social History Does the pt smoke?: No Smoking Status: Never smoker PD ED PE NORMAL - Vitals Vital signs reviewed: Yes - General General: Alert and oriented X 3, No acute distress, Well developed/nourished - HEENT HEENT: Atraumatic, PERRL, EOMI - Neck Neck: Supple, no meningeal sign - Cardiac Cardiac: RRR - Respiratory Respiratory: No respiratory distress, Clear bilaterally - Abdomen Abdomen: Non tender, Non distended - Derm Derm: Normal color, Warm and dry - Extremities Extremities: No deformity - Neuro Neuro: Alert and oriented X 3, bull bucker 2-12 intact, No motor deficit, No sensory deficit, Normal speech, Other (Normal strength, cerebellar movement) Eye Opening: To Voice Motor: Obeys Commands Verbal: Oriented GCS Score: 14 - Psych Psych: Normal mood, Normal affect Results - Vitals Vitals: Vital Signs - 24 hr 11/10/22 11/10/22 11/10/22 22:25 22:29 22:59 Temperature 36.4 C L Heart Rate 55 L 62 Respiratory 19 19 14 Rate Blood Pressure 121/95 H 161/81 H O2 Saturation 98 96 11/11/22 01:11 Temperature Heart Rate 72 Respiratory 15 Rate Blood Pressure 158/86 H O2 Saturation 96 Oxygen O2 Source Room air - EKG (time done) 2222 EKG releavant findings:: EKG personally interpreted by author of this note. Relevant findings are: Rate: Rate (enter#) (63) Rhythm: NSR Eliot: Normal Intervals: Other (short MA) QRS: Normal Ischemia: Normal ST segments - Labs Labs: Laboratory Tests 11/10/22 11/10/22 11/10/22 22:23 22:30 22:30 WBC 9.4 RBC 4.90 Hgb 15.0 Hct 43.9 MCV 89.6 MCH 30.6 MCHC 34.2 RDW 13.1 Plt Count 185 MPV 9.5 Neut # (Auto) 6.4 Lymph # (Auto) 2.2 Tyler # (Auto) 0.7 Eos # (Auto) 0.1 Baso # (Auto) 0.0 Absolute Nucleated RBC 0.00 Nucleated RBC % 0.0 Sodium 137 Potassium 4.4 Chloride 105 Carbon Dioxide 24 Anion Gap 8.0 BUN 19 Creatinine 1.0 Estimated GFR (MDRD) 71 L Glucose 115 H POC Whole Bld Glucose 106 H Calcium 9.6 Magnesium Total Bilirubin 0.5 AST 21 ALT 31 Alkaline Phosphatase 48 Troponin I High Sens Total Protein 7.4 Albumin 4.1 Globulin 3.3 Albumin/Globulin Ratio 1.2 Lipase 32 TSH Thyroxine (T4) 11/10/22 11/10/22 11/10/22 22:30 22:30 22:30 WBC RBC Hgb Hct MCV MCH MCHC RDW Plt Count MPV Neut # (Auto) Lymph # (Auto) Tyler # (Auto) Eos # (Auto) Baso # (Auto) Absolute Nucleated RBC Nucleated RBC % Sodium Potassium Chloride Carbon Dioxide Anion Gap BUN Creatinine Estimated GFR (MDRD) Glucose POC Whole Bld Glucose Calcium Magnesium 2.2 Total Bilirubin AST ALT Alkaline Phosphatase Troponin I High Sens 4.8 Total Protein Albumin Globulin Albumin/Globulin Ratio Lipase TSH Thyroxine (T4) 7.08 11/10/22 22:30 WBC RBC Hgb Hct MCV MCH MCHC RDW Plt Count MPV Neut # (Auto) Lymph # (Auto) Tyler # (Auto) Eos # (Auto) Baso # (Auto) Absolute Nucleated RBC Nucleated RBC % Sodium Potassium Chloride Carbon Dioxide Anion Gap BUN Creatinine Estimated GFR (MDRD) Glucose POC Whole Bld Glucose Calcium Magnesium Total Bilirubin AST ALT Alkaline Phosphatase Troponin I High Sens Total Protein Albumin Globulin Albumin/Globulin Ratio Lipase TSH 5.95 H Thyroxine (T4) PD Medical Decision Making - ED course ED course: 10:20 PM - patient has no focal neurological deficit on arrival, not a tpa candidate given NIHSS 0. patient asymptomatic at present, endorsing only some lightheadedness. he states he was cutting the lawn earlier today and then at [facility] study began to feel lightheaded when ems was called. he also had an episode of dizziness 2 weeks ago without acute findings. He does have bradycardia on the monitor with HR in 40s but on chart review has been bradycardic in the past. plan to obtain cta head/neck to eval for posterior circulation central cause for symptoms, but I suspect this is not neurologically mediated. CTA head/neck and CXR without evidence of cardiopulmonary disease. EKG first degree AV block. labwork noncontributory. I discussed with the patient and his son. Son states he is concerned because patient's speech was still slurred when he arrived. also concerned that HR dips into 30s on the heart monitor periodically before returning to 60s. Patient had an episode while I was in the room with HR dropping to 38. He stated he became lightheaded a few moments after the monitor went off. Plan to obtain magnesium and thyroid studies to eval further. Call also has been placed to [facility] cardiology for possible transfer in setting of symptomatic bradycardia. d/w Dr. Bradley Faria, glass products inspector nutrition tech who states patient may need evalu ation for pacemaker and should be transferred to [facility]. transfer center has no beds until discharges in morning time. s/w Dr. Reyes,accepting hospitalist. Departure - Departure Disposition: 02 Transfer Acute Care Hosp Clinical Impression: Dizziness, Slurred speech, Symptomatic bradycardia Condition: Stable
[2022-11-10] MEDS ORDERED: SODIUM CHLORIDE 0.9% 1,000 ML IV STA (22:28)
[2022-11-10 22:35] LABS: BASOPHILS % (AUTO) 0.4 %; EOSINOPHILS # (AUTO) 0.1 10^3/uL (0.0-0.7); EOSINOPHILS % (AUTO) 1.5 %; HCT - HEMATOCRIT 43.9 % (42.0-52.0); LYMPHOCYTES # (AUTO) 2.2 10^3/uL (1.5-3.5); LYMPHOCYTES % (AUTO) 23.2 %; MEAN CORPUSCULAR HEMOGLOBIN 30.6 pg (27.0-31.0); MEAN CORPUSCULAR HGB CONC 34.2 g/dL (32.0-36.0); MEAN CORPUSCULAR VOLUME 89.6 fL (80.0-94.0); MEAN PLATELET VOLUME 9.5 fL (7.4-11.4); MONOCYTES # (AUTO) 0.7 10^3/uL (0.0-1.0); NEUTROPHILS # (AUTO) 6.4 10^3/uL (1.5-6.6); NEUTROPHILS % (AUTO) 67.6 %; PLT - PLATELET COUNT 185 10^3/uL (130-450); RED CELL DISTRIBUTION WIDTH 13.1 % (12.0-15.0); WHITE BLOOD COUNT 9.4 x10^3/uL (4.8-10.8)
[2022-11-10] MEDS ORDERED: iohexoL-300 100 ML VIAL ONE (22:39)
[2022-11-10 22:56] LABS: ALBUMIN 4.1 g/dL (3.2-5.5); ALBUMIN/GLOBULIN RATIO 1.2 (1.0-2.2); BILIRUBIN,TOTAL 0.5 mg/dL (0.2-1.0); CALCIUM 9.6 mg/dL (8.5-10.3); POTASSIUM 4.4 mmol/L (3.5-5.0); TOTAL PROTEIN 7.4 g/dL (6.7-8.2)
[2022-11-10] MEDS ORDERED: iohexoL-300 100 ML VIAL IVP ONE (22:59)
--- NOTE | 2022-11-10 23:40 | CT Report ---
PROCEDURE: ANGIO NECK W INDICATIONS: dizzy CONTRAST: Omni 300 80ml TECHNIQUE: After the administration of intravenous contrast, 1.5 mm axial sections acquired from the aortic arch to the [place] of [place]. Coronal 3-D maximum intensity projection (MIP) and/or volume rendering ref ormats were then performed. For radiation dose reduction, the following was used: automated exposur e control, adjustment of mA and/or kV according to patient size. COMPARISON: Concurrent CTA of the head. FINDINGS: Image quality: Excellent. NECK CT ANGIOGRAPHY: Carotid system: The great vessels demonstrate a conventional anatomy as they arise from the aortic a rch. The origins of the common carotid arteries appear patent. The common carotid arteries demonstr ate normal caliber and courses. The bifurcation regions are both widely patent. The internal caroti d arteries demonstrate normal calibers and courses. Posterior circulation: The origins of the vertebral arteries both appear patent. The more superior extracranial portions of both vertebral arteries also demonstrate normal courses and calibers. They join to form a patent basilar artery. Soft tissues: Visualized neck soft tissues demonstrate no suspicious abnormalities. Bones: No suspicious bony lesions. Visualized cervical spine demonstrates straightening of the cerv ical lordosis. There is minimal anterolisthesis at C2-C3 and C3-C4. There is multilevel degenerative disc disease and facet joint arthropathy. IMPRESSION: 1. No high-grade stenosis or occlusion of the head and neck arteries. The carotid bulbs appear widely patent. The estimate of stenosis included in the report of the imaging study was calculated using the NASCET method Reviewed by: Greg Beckman MD on 11/10/2022 11:45 PM PDT Approved by: Greg Beckman MD on 11/10/2022 11:45 PM PDT Station ID: [id number]
--- NOTE | 2022-11-10 23:57 | CT Report ---
PROCEDURE: ANGIO HEAD W/WO INDICATIONS: dizzy CONTRAST: Omni 300 80ml TECHNIQUE: Precontrast 4.5 mm thick angled axial sections acquired from the foramen magnum to the vertex. Afte r the administration of intravenous contrast, 1 mm thick sections acquired through the [place] of [place] is. Postcontrast 4.5 mm thick sections then re-acquired from the foramen magnum to the vertex. 3-di mensional rqkejrp-wehxiypma-kwlvoypobn (MIP) and/or volume rendering reformats were acquired of the c entral intracranial vasculature. For radiation dose reduction, the following was used: automated ex posure control, adjustment of mA and/or kV according to patient size. COMPARISON: Concurrent CTA of the neck FINDINGS: Image quality: Excellent. BRAIN: CSF spaces: Basal cisterns are patent. No extra-axial fluid collections. Ventricles are normal in size and shape. Brain: No intracranial hemorrhage, mass, or mass effect. Baeza-white matter interface appears preser deena. No abnormal intracranial enhancement. Skull and face: Calvarium and facial bones appear intact, without suspicious lesions. Orbits appear normal. Sinuses: Sinuses and mastoids are clear. HEAD CT ANGIOGRAPHY: Anterior circulation: Intracranial internal carotid arteries are normal in size and appear patent bi laterally. There is mild atherosclerotic calcification along the cavernous segments of the internal carotid arteries. The paired anterior cerebral arteries appear patent bilaterally. The anterior com municating artery also appears patent. The middle cerebral arteries appear patent bilaterally. No hi gh-grade stenosis, occlusion, or filling defects. No cerebral aneurysms identified. Posterior circulation: Visualized portions of the vertebral arteries demonstrate normal caliber, and join to form a patent basilar artery. The posterior cerebral arteries appears patent bilaterally. No high-grade stenosis, occlusion, or filling defects. No cerebral aneurysms identified. IMPRESSION: 1. No acute intracranial abnormality. 2. No high-grade stenosis or occlusion of the central intracranial arteries. Reviewed by: Greg Beckman MD on 11/10/2022 11:55 PM PDT Approved by: Greg Beckman MD on 11/10/2022 11:55 PM PDT Station ID: [id number]
--- NOTE | 2022-11-10 23:57 | XRAY Report ---
PROCEDURE: Chest 1 View X-Ray INDICATIONS: Chest Pain TECHNIQUE: One view of the chest was acquired. COMPARISON: None. FINDINGS: Surgical changes and devices: None. Lungs and pleura: No pleural effusions or pneumothorax. Lungs are clear. Mediastinum: Mediastinal contours appear normal. Heart size is normal. Bones and chest wall: No suspicious bony lesions. Overlying soft tissues appear unremarkable. IMPRESSION: No acute cardiopulmonary disease. Reviewed by: Greg Beckman MD on 11/10/2022 11:56 PM PDT Approved by: Greg Beckman MD on 11/10/2022 11:56 PM PDT Station ID: [id number]
[2022-11-11 04:02] VITALS: BP 135/69
== END 2022-11-11 04:49 | disposition short-term general hospital (02) ==
LOC: EDUNIT# → ED 22:12
DX: R47.81 Slurred speech (principal); R42 Dizziness and giddiness; R00.1 Bradycardia, unspecified
CPT/HCPCS: 36415; 70496; 70498; 71045; 80053; 83690; 83735; 84436; 84443; 84484; 85025; 93005; 99284; 99285; Q9967

== ENCOUNTER 2022-11-11 04:42 | Outpatient (CLI) | payer MEDICARE | END 2022-11-11 23:59 | disposition short-term general hospital (02) | LOC: EMS 04:42 | PROVIDERS: ATTEND Emergency Medicine | DX: R00.1 Bradycardia, unspecified (principal) | CPT/HCPCS: A0425; A0428 ==

== ENCOUNTER 2022-12-09 10:25 | Outpatient (CLI) | payer MEDICARE ==
[2022-12-09 15:32] LABS: CALCIUM 9.9 mg/dL (8.5-10.3); CREATININE 1.2 mg/dL (0.6-1.2); POTASSIUM 4.1 mmol/L (3.5-5.0)
== END 2022-12-09 10:26 | disposition home or self-care (01) ==
LOC: LAB.S 10:25
PROVIDERS: ATTEND Internal Medicine Cardiovascular Disease
DX: R00.1 Bradycardia, unspecified (principal)
CPT/HCPCS: 36415; 80048

== ENCOUNTER 2023-03-12 13:53 | Emergency (ER) | payer MEDICARE ==
--- NOTE | 2023-03-12 16:13 | Ultrasound Report ---
PROCEDURE: Pelvic Male INDICATIONS: Right inguinal pain TECHNIQUE: Real-time ultrasound scanning was performed with documentation. Color Doppler ultrasound w as also utilized. COMPARISON: Correlation is made with prior abdomen pelvis CT, 06/30/2018 FINDINGS: Scanning is performed at the area of the clinical right groin pain. This site, no hernia defect is se en, including Valsalva maneuver. IMPRESSION: No right groin hernia is seen on these ultrasound images. Reviewed by: Sánchez Peck MD on 03/12/2023 3:12 PM [facility] Approved by: Sánchez Peck MD on 03/12/2023 3:12 PM [facility] Station ID: [id number]
--- NOTE | 2023-03-12 16:33 | ED Physician Documentation ---
PD HPI ABD PAIN - Stated complaint Stated Complaint: - Chief complaint Chief Complaint: Abd Pain - History obtained from History obtained from: Patient - History of Present Illness Timing - onset: How many weeks ago (3) Timing - duration: Weeks (3) Timing - details: Abrupt onset (he had onset of right inguinal pain after lifting and moving some furniture 3 weeks ago. Has continued with pain on lifting, movement and with bending/bowel movements. He has felt some swelling right scrotal area at times. Had one episode of severe cramping pain associated with N/V for 20 minutes.), Still present, Waxing and waning Quality: Cramping, Aching, Pain Location: Other (right inguinal and upper scrotal area intermittently, but more often now with movement, light lifting, bending.) Improved by: Laying still Worsened by: Moving, Position. No: Breathing Associated symptoms: Nausea, Vomiting (one single spiodes few days ago lasting 20 minutes iwth increased cramping pain and vomiting/nausea that resolved without focused treatment per se.). No: Fever Recently seen: Clinic (seen by PCP in clinic with presumed hernia and had outpt US ordered that was to be done this morning but he missed appt. He is here for eval subsequent to the US, having still increased pain the past few days.) Review of Systems Constitutional: denies: Fever, Chills GI: denies: Constipation (he is taking stool softeners the past couple of weeks.), Diarrhea : denies: Dysuria, Frequency, Hesitancy, Incontinent Skin: denies: Rash, Lesions PD PAST MEDICAL HISTORY - Past Medical History Cardiovascular: None Respiratory: None Endocrine/Autoimmune: None GI: None : Benign prostate hypertrophy HEENT: Glaucoma, Chronic sinusitis Psych: None Musculoskeletal: Other Derm: None - Past Surgical History General: Cholecystectomy, Colonoscopy HEENT: Cataracts - Present Medications Home Medications: Ambulatory Orders Medication Instructions Recorded Confirmed Brimonidine 0.1% Ophth Drops 1 drops EACHEYE BID 04/27/17 03/26/21 [Alphagan P 0.1% Ophth Drops] Finasteride [Propecia] 5 mg PO DAILY 04/27/17 03/26/21 Tamsulosin [Flomax] 0.4 mg PO DAILY 04/27/17 03/26/21 Timolol 0.25% Ophth Drops 1 drops EACHEYE DAILY 04/27/17 03/26/21 [Timoptic 0.25% Ophth Drops] Latanoprost 0.005% Ophth Drops 1 drops EACHEYE DAILY 07/14/18 03/26/21 [Xalatan Ophth Drops] Magnesium 1 tab PO DAILY 03/26/21 03/26/21 - Allergies Allergies/Adverse Reactions: Allergies Allergy/AdvReac Type Severity Reaction Status Date / Time No Known Drug Allergies Allergy Verified 03/12/23 14:03 - Social History Does the pt smoke?: No Smoking Status: Never smoker PD ED PE NORMAL - Vitals Vital signs reviewed: Yes - General General: Alert and oriented X 3, No acute distress, Well developed/nourished - Abdomen Abdomen: Soft, Non tender (not tender in abdomen itself. He has tenderness in right inguinal canal area and there is soft tissue defect c/w hernia there, some soft tissue pushing with abd tightening toward the scrotum. No persistent hernia mass. There is some tenderness right upper scrotal area. Testicles not tender. nl lie. ), Non distended Results - Vitals Vitals: Oxygen O2 Source Room air - Rads (name of study) male pelvic US Relevant Findings:: Prelim report reviewed (no hernia mass seen. ), EMP independent interpretation of test PD Medical Decision Making - ED course Complexity details: considered differential (it sounds like he has a new hernia that is painful with activity, and has had one episode of brief incarceration of it couple days ago. No persistent hernia mass but clinically sounds at times with position/activity. Refer to Surgery offices for eval. ), d/w patient ED course: He is cautioned about symptoms of incarceration and to come to ED if occurs and not resolved with lying down and gentle pressure. Otherwise he would like surgical consult and hopes for surgical repair. Departure - Departure Disposition: 01 Home, Self Care Clinical Impression: Right inguinal pain, Inguinal hernia Condition: Stable Record reviewed to determine appropriate education?: Yes Instructions: ED Hernia Inguinal Follow-Up: Destin Maki MD [Provider Admit Priv/Credential] - Surgical Care [Provider Group] Comments: It does feel like you have a hernia defect in the inguinal canal. It does sound like you are having hernia symptoms. The ultrasound today showed no signs of trapped hernia tissue but that is not too unusual on imaging done in the laying position. As you are having pain from it, it does make sense to consult with a surgery to discuss treatment and possible repair. I provided the name of 2 of the surgery clinics here in [place]. You could call either and see who has more sooner appointments for follow-up. They are all good surgeons. Tylenol or ibuprofen or such if needed for pains. Continue with your stool softeners. Return if you have persistent pain or any hard tender area that develops or persistent nausea vomiting abdominal pain that does not improve with resting and lying flat. Forms: PCP List Discharge Date/Time: 03/12/23 17:17
[2023-03-12 17:18] VITALS: BP 149/73; O2SAT 99
== END 2023-03-12 17:17 | disposition home or self-care (01) ==
LOC: ED 13:53
DX: K40.90 Unilateral inguinal hernia, without obstruction or gangrene, not specified as recurrent (principal)
CPT/HCPCS: 99283; 99284

== ENCOUNTER 2023-04-01 07:47 | Outpatient (CLI) | payer MEDICARE ==
[2023-04-01 15:19] LABS: CREATININE 1.1 mg/dL (0.6-1.3)
== END 2023-04-01 07:48 | disposition home or self-care (01) ==
LOC: LAB.S 07:47
PROVIDERS: ATTEND Surgery
DX: R63.4 Abnormal weight loss (principal)
CPT/HCPCS: 36415; 82565

== ENCOUNTER 2023-04-11 10:53 | Outpatient (CLI) | payer MEDICARE ==
[2023-04-11] MEDS: BARIUM SULFATE 450 ML BOTTLE PO ONE (15:29)
[2023-04-11] MEDS: iohexoL-300 100 ML VIAL IVP ONE (15:29)
--- NOTE | 2023-04-12 09:09 | CT Report ---
PROCEDURE: ABDOMEN/PELVIS W INDICATIONS: UNINTENTIONAL WEIGHT LOSS CONTRAST: 100ml omni 300 TECHNIQUE: After the administration of oral and IV contrast, 5 mm thick sections acquired from the diaphragms to the symphysis. 5 mm thick coronal and sagittal reformats were acquired. For radiation dose reducti on, the following was used: automated exposure control, adjustment of mA and/or kV according to mauricio ent size. COMPARISON: CT abdomen and pelvis, . FINDINGS: Image quality: Excellent. Lung bases and heart: Unremarkable. Small hiatal hernia. Liver: No solid mass. Mild hepatic steatosis. Gallbladder and biliary tree: The gallbladder is surgically absent. No biliary dilation. Spleen: No splenomegaly. Pancreas: No pancreatic ductal dilation. Adrenals: No adrenal nodule. Kidneys and ureters: No hydronephrosis. No renal cystic lesion which requires follow up. There are mu ltiple simple appearing renal cysts bilaterally. No solid mass. Bowel and peritoneum: No bowel distension. No pathologic free fluid. There are numerous colonic diver ticula. No CT findings to suggest acute diverticulitis. Lymph nodes: No central or retroperitoneal adenopathy. Vessels: No infrarenal aortic aneurysm. PELVIS Reproductive organs: Prostate is markedly enlarged. Bladder: No abnormal wall thickening, accounting for underdistension. Pelvic lymph nodes: No pelvic adenopathy by size criteria. Bones: No aggressive osseous abnormality. Moderate levoscoliosis. Degenerative disc and facet disease in lumbar spine. Other: No significant ventral or inguinal hernia. IMPRESSION: 1. Diverticulosis without acute diverticulitis. 2. Marked enlargement of prostate. Reviewed by: Jasmin Casillas MD on 04/12/2023 9:08 AM [facility] Approved by: Jasmin Casillas MD on 04/12/2023 9:08 AM PST Station ID: [id number]
== END 2023-04-11 10:54 | disposition home or self-care (01) ==
LOC: DI 10:53
PROVIDERS: ATTEND Surgery
DX: R63.4 Abnormal weight loss (principal); K57.30 Diverticulosis of large intestine without perforation or abscess without bleeding; N40.0 Benign prostatic hyperplasia without lower urinary tract symptoms
CPT/HCPCS: 74177; A9270; Q9967

== ENCOUNTER 2023-04-14 11:06 | Outpatient (CLI) | payer MEDICARE ==
[2023-04-14 15:00] LABS: BILIRUBIN,URINE NEGATIVE (NEGATIVE); GLUCOSE, URINE (UA) NEGATIVE (NEGATIVE); KETONES,URINE (UA) NEGATIVE (NEGATIVE); LEUKOCYTE ESTERASE, URINE NEGATIVE (NEGATIVE); NITRITE,URINE NEGATIVE (NEGATIVE); OCCULT BLOOD,URINE NEGATIVE (NEGATIVE); PH,URINE 6.5 PH (5.0-7.5); PROTEIN,URINE NEGATIVE (NEGATIVE); UROBILINOGEN,URINE 0.2 (NORMAL) E.U./dL (NORMAL)
[2023-04-14 15:20] LABS: BACTERIA,URINE Rare /HPF (None Seen); CLARITY,URINE CLEAR (CLEAR); RBC,URINE None Seen /HPF (0-5); SQUAMOUS EPITHELIAL CELL,UR NONE SEEN (<= Few); WBC,URINE 0-3 /HPF (0-3)
== END 2023-04-14 11:07 | disposition home or self-care (01) ==
LOC: LAB.S 11:06
PROVIDERS: ATTEND Registered Nurse
DX: N40.0 Benign prostatic hyperplasia without lower urinary tract symptoms (principal); R10.31 Right lower quadrant pain
CPT/HCPCS: 36415; 81001; 84153; 87086

== ENCOUNTER 2023-05-04 08:00 | Outpatient (CLI) | payer MEDICARE ==
[2023-05-04 16:24] LABS: BILIRUBIN,URINE NEGATIVE (NEGATIVE); GLUCOSE, URINE (UA) NEGATIVE (NEGATIVE); KETONES,URINE (UA) NEGATIVE (NEGATIVE); LEUKOCYTE ESTERASE, URINE NEGATIVE (NEGATIVE); NITRITE,URINE NEGATIVE (NEGATIVE); OCCULT BLOOD,URINE NEGATIVE (NEGATIVE); PROTEIN,URINE NEGATIVE (NEGATIVE); UROBILINOGEN,URINE 0.2 (NORMAL) E.U./dL (NORMAL)
[2023-05-04 16:29] LABS: CLARITY,URINE CLEAR (CLEAR)
[2023-05-04 16:45] LABS: RBC,URINE 0-5 /HPF (0-5); SQUAMOUS EPITHELIAL CELL,UR NONE SEEN (<= Few); WBC,URINE 0-3 /HPF (0-3)
[2023-05-04 16:46] LABS: BACTERIA,URINE None Seen /HPF (None Seen)
== END 2023-05-04 23:59 | disposition home or self-care (01) ==
LOC: LAB 08:00
PROVIDERS: ATTEND Urology
DX: N40.0 Benign prostatic hyperplasia without lower urinary tract symptoms (principal)
CPT/HCPCS: 81001; 87086

== ENCOUNTER 2023-06-02 12:47 | Outpatient (CLI) | payer MEDICARE ==
[2023-06-02] MEDS ORDERED: DIATRIZOATE MEGLU/DIATRIZO SOD 30 ML BOTTLE PO ONE (13:15)
--- NOTE | 2023-06-03 10:33 | CT Report ---
PROCEDURE: Pelvis WO INDICATIONS: RLQ ABD PAIN TECHNIQUE: Noncontrast 3 mm axial sections acquired through the pelvis, with coronal and sagittal reformatting. For radiation dose reduction, the following was used: automated exposure control, adjustment of mA a nd/or kV according to patient size. COMPARISON: CT abdomen pelvis 04/21/2023 and ultrasound of the pelvis 03/12/2023 FINDINGS: Image quality: Excellent. Soft tissues: There is a fat and small bowel containing indirect right inguinal hernia with a neck m easuring roughly 2.1 cm. Herniated and distal small bowel loops contain oral contrast indicating lack of obstruction. There is no fluid in the hernia sac or induration of herniated fat. This finding was not present on prior CT. No left inguinal hernia. Remainder of the visualized small bowel loops are normal caliber. There is moderate diverticulosis of the sigmoid colon. No acute inflammation. No free fluid in the pelvis. The prostate gland is moderately enlarged. Urinary bladder and distal ureters appear normal. There is moderate atherosclerotic calcification of aorta and common iliac arteries. No pelvic adenopathy. The visible portions of the upper abdominal organs are remarkable for a few renal cysts and nonobstructi ng punctate left lower pole intrarenal calculus. Bones: Severe disc height loss L5-S1. Moderate facet arthropathy in the visible lumbar spine. IMPRESSION: 1. Nonobstructing small bowel containing right inguinal hernia. 2. Sigmoid diverticulosis. 3. Prostatomegaly. Reviewed by: Nayely Christian MD on 06/03/2023 10:32 AM PST Approved by: Nayely Christian MD on 06/03/2023 10:32 AM PST Station ID: [id number]
== END 2023-06-02 12:48 | disposition home or self-care (01) ==
LOC: DI 12:47
PROVIDERS: ATTEND Surgery
DX: K40.90 Unilateral inguinal hernia, without obstruction or gangrene, not specified as recurrent (principal); K57.30 Diverticulosis of large intestine without perforation or abscess without bleeding; N40.0 Benign prostatic hyperplasia without lower urinary tract symptoms
CPT/HCPCS: 72192; Q9963

== ENCOUNTER 2023-07-18 06:15 | Day surgery (SDC) | payer MEDICARE ==
[~2023-07-18 06:15] MED LIST changes: -PROPOFOL 500 MG/50 ML 500 MG/50 ML VIAL ONE; +ceFAZolin 2 GM VIAL ONE
[2023-07-18] MEDS: LACTATED RINGERS 1,000 ML IV ONE (06:22)
[2023-07-18 06:32] VITALS: BP 144/80; O2SAT 98
[2023-07-18] MEDS: TAMSULOSIN 0.4 MG CAPSULE ONE (06:44)
[2023-07-18] MEDS: ACETAMINOPHEN 500 MG TABLET PO ONE (06:44)
[2023-07-18] MEDS ORDERED: PROPOFOL 200 MG/20 ML VIAL IVP ONE (07:00)
[2023-07-18] MEDS ORDERED: fentaNYL 100 MCG/2 ML VIAL ONE (07:00)
== END 2023-07-18 06:16 | disposition home or self-care (01) ==
LOC: SDS 06:15
PROVIDERS: ATTEND Surgery
DX: Z53.9 Procedure and treatment not carried out, unspecified reason (principal)
CPT/HCPCS: A9270; J7120

== ENCOUNTER 2023-08-08 08:15 | Day surgery (SDC) | payer MEDICARE ==
[2023-08-08] MEDS ORDERED: ceFAZolin 2 GM VIAL ONE (08:22)
[2023-08-08] MEDS: LACTATED RINGERS 1,000 ML IV ONE ×2 (08:26→12:50)
[2023-08-08] MEDS: TAMSULOSIN 0.4 MG CAPSULE ONE (08:51)
[2023-08-08] MEDS: ACETAMINOPHEN 500 MG TABLET PO ONE (08:51)
--- NOTE | 2023-08-08 09:51 | ANESTHESIA ---
Pre-Anesthesia VS, & Labs - Diagnosis R inguinal hernia - Procedure R open inguinal hernia repair with mesh Vital Signs: Temp Pulse Resp BP Pulse Ox O2 Flow Rate 36.5 C 70 13 131/75 H 100 08/08/23 08:25 08/08/23 08:25 08/08/23 08:25 08/08/23 08:25 08/08/23 08:25 Height: 5 ft 10 in Weight (kg): 23873 kg Body Mass Index: 4167.2 BMI Classification: Morbidly Obese - NPO >8 hours - Lab Results Lab results reviewed: Yes Home Medications and Allergies Brimonidine 0.1% Ophth Drops [Alphagan P 0.1% Ophth Drops] 1 drops EACHEYE BID 04/27/17 Finasteride [Propecia] 5 mg PO DAILY 04/27/17 Tamsulosin [Flomax] 0.4 mg PO DAILY 04/27/17 Latanoprost 0.005% Ophth Drops [Xalatan Ophth Drops] 1 drops EACHEYE DAILY 07/14/18 Dorzolamide HCl/Pf [Dorzolamide 2% Eye Drop] 1 drops EACHEYE DAILY 07/12/23 Lisinopril [Zestril] 2.5 mg PO ONCE PRN 07/12/23 Allergies/Adverse Reactions: Allergies Allergy/AdvReac Type Severity Reaction Status Date / Time latex AdvReac Intermediate Rash Verified 08/08/23 08:56 Anes History & Medical History - Anesthetic History Anesthesia Complications: reports: No previous complications Family history of Anesthesia Complications: Denies Family history of Malignant Hyperthermia: Denies - Medical History Cardiovascular: reports: Hypertension Pulmonary: reports: None Gastrointestinal: reports: GERD, Hiatal hernia, Colon polyps Urinary: reports: Benign prostate hypertrophy Musculoskeletal: reports: Osteoarthritis, Gout, Chronic back pain Endocrine/Autoimmune: reports: None Skin: reports: None Smoking Status: Never smoker - Surgical History General: reports: Cholecystectomy, Colonoscopy Eyes Ears Nose Throat (EENT): reports: Cataracts Exam General: Alert, Oriented x3, Cooperative Dental: Other (missing tooth 24, implant scheduled for 3 weeks) Mouth Openin Fingerbreadth Neck Mobility: Normal Mallampati classification: II Thyromental Distance: 4-6 cm Respiratory: Lungs clear, Normal breath sounds, No respiratory distress Cardiovascular: Regular rate Neurological: Normal speech Mental/Cognitive Status: Alert/Oriented X3, Normal for patient Cognitive Status: Within normal limits Plan Anesthesia Type: General Regional Block: Per Surgeon's request for Post Op pain control Consent for Procedure(s) Verified and Reviewed: Yes Code Status: Attempt Resuscitation ASA classification: 2-Mild systemic disease Is this case an emergency?: No
[2023-08-08] MEDS ORDERED: NALOXONE 0.4 MG/ML VIAL IVP PRN (10:02)
[2023-08-08] MEDS ORDERED: MORPHINE 2 MG/ML CARPUJECT IVP PRN (10:02)
[2023-08-08] MEDS ORDERED: ONDANSETRON 4 MG/2 ML VIAL IVP PRN ×2 (10:02→12:55)
[2023-08-08] MEDS ORDERED: ATROPINE ABBOJECT 1 MG/10 ML SYRINGE IVP PRN (10:02)
[2023-08-08] MEDS ORDERED: HYDROmorphone 0.5 MG/0.5 ML SYRINGE IVP PRN ×2 (10:02→12:55)
[2023-08-08] MEDS ORDERED: ePHEDrine 50 MG/ML VIAL IVP PRN (10:02)
[2023-08-08] MEDS ORDERED: METOCLOPRAMIDE 10 MG/2 ML VIAL IVP PRN (10:02)
[2023-08-08] MEDS ORDERED: fentaNYL 100 MCG/2 ML VIAL IVP PRN (10:02)
[2023-08-08] MEDS ORDERED: BUPIVACAINE 0.5% PF 10 ML VIAL ONE (10:48)
[2023-08-08] MEDS ORDERED: LIDOCAINE 1%-EPI 1:100000 20 ML MDV ONE (10:49)
[2023-08-08] MEDS ORDERED: fentaNYL 100 MCG/2 ML VIAL ONE (10:51)
[2023-08-08] MEDS ORDERED: MIDAZOLAM 2 MG/2 ML VIAL ONE (10:51)
[2023-08-08] MEDS ORDERED: PROPOFOL 200 MG/20 ML VIAL IVP ONE (10:51)
[2023-08-08] MEDS ORDERED: LIDOCAINE-PF 2% 10 ML AMP SUBQ ONE (10:51)
[2023-08-08] MEDS ORDERED: LACTATED RINGERS 1,000 ML IV SCH (11:00)
[2023-08-08] MEDS ORDERED: ePHEDrine 50 MG/ML VIAL IVP ONE (11:45)
[2023-08-08] MEDS ORDERED: PHENYLEPHRINE HCL 0.5 MG/5 ML AMPULE ONE ×2 (11:45→12:02)
[2023-08-08] MEDS ORDERED: GLYCOPYRROLATE 1 MG/5 ML VIAL ONE (11:50)
[2023-08-08] MEDS ORDERED: ONDANSETRON 4 MG/2 ML VIAL ONE (12:12)
[2023-08-08] MEDS ORDERED: DEXAMETHASONE 4 MG/ML VIAL ONE (12:12)
[2023-08-08] MEDS: BUPIVACAINE 0.5% PF 10 ML VIAL SUBQ ONE (12:35)
[2023-08-08] MEDS: LIDOCAINE 1%-EPI 1:100000 20 ML MDV SUBQ ONE (12:35)
[2023-08-08] MEDS ORDERED: oxyCODONE 5 MG TABLET PO PRN (12:55)
[2023-08-08] MEDS ORDERED: ACETAMINOPHEN 500 MG TABLET PO PRN (12:55)
--- NOTE | 2023-08-08 13:00 | OPERATIVE REPORT ---
Operative Report - General Procedure Date: 08/08/23 Planned Procedure: open right inguinal hernia repair with mesh Pre-Op Diagnosis: right inguinal hernia Procedure Performed: open right inguinal hernia repair with mesh Post Op Diagnosis: indirect right inguinal hernia - Procedure Note Primary Surgeon: Dr. Anali Bunn Anesthesia Provider: Ruslan Kline CRNA Anesthesia Technique: General ET tube, Local Pathology: hernia sac, sent to pathology Estimated Blood Loss (mL): 5 Indications: The patient has had several months of increasing right groin pain. He had 2 CT scans and an ultrasound, the most recent of which finally revealed a hernia. On physical exam, the patient did have groin pain, but never a palpable hernia. He was seen and evaluated in the clinic where we discussed the risks, benefits, and alternatives of open inguinal hernia repair with mesh including bleeding, infection, damage to surrounding structures, chronic groin pain, infection of the mesh requiring removal, recurrence of the hernia, and the possible need for further surgeries or procedures. The patient voiced understanding, his questions were answered, and he wished to proceed. A consent was signed by the patient in clinic. Findings: 1.Indirect right inguinal hernia with large cord lipoma Complications: None - Other Other Information/Narrative: The patient was brought to the operative suite and placed in the supine position. General endotracheal anesthesia was induced. Preop antibiotics were given and ERAS protocol was followed. Patient was prepped and draped in the usual sterile fashion. A preop surgical timeout was performed. Next, local was used to perform a right ilioinguinal nerve block. The incision was planned overlying the area of the hernia following the skin crease. An incision was made with a 10 blade scalpel and carried down through the skin and subcutaneous tissues to the level of the external abdominal oblique. Excellent hemostasis was maintained. Local was injected just deep to the external abdominal oblique and the external abdominal oblique muscle was opened using a 15 blade scalpel following the muscle fibers. The incision was enlarged using Metzenbaum scissors through the external inguinal ring and slightly laterally. Next the cord structures were isolated from the surrounding tissues and a [place] drain was passed around them. The hernia sac was identified and isolated from the surrounding tissues taking great care to avoid any cord structures. The patient was noted to have an indirect inguinal hernia and a large cord lipoma. The cord lipoma was excised. Once the sac was completely isolated from the surrounding tissues a high ligation with suture was performed. Next, the preperitoneal space was developed. A PHSE prolene hernia system was brought onto the field and placed in the preperitoneal space and the internal component lay flat. The external component was opened. It was tacked medially and inferiorly to the pubic tubercle using a 2-0 PDS suture. It was also tacked to the shelving edge inferiorly and laterally and to the shelving edge superiorly to allow it to lie flat. A slit was made to accommodate the cord structures and the external inguinal ring was re-created. Care was taken to ensure that there was adequate space to accommodate the cord structures and swelling postoperatively. The corn ers of the mesh were reapproximated to re-create this ring using 2-0 PDS. Additional local was injected into the tissues in the areas where the sutures were placed. Next, the external abdominal oblique muscle was reapproximated with 2-0 Vicryl in a running fashion. Then, Antonio's fascia was reapproximated with 3-0 Vicryl in an interrupted fashion. The subcutaneous tissues were irrigated with warm normal saline. The deep dermal tissues were reapproximated with 3-0 Vicryl in an interrupted fashion. Finally, 4-0 Monocryl was used to reapproximate the skin edges in a running subcuticular fashion. A sterile dressing of skin glue was placed. The patient tolerated the procedure well. Both testicles were noted to be within the scrotum at the end of the case. There were no complications.
[2023-08-08 13:35] VITALS: BP 131/73; O2SAT 98
== END 2023-08-08 08:16 | disposition home or self-care (01) ==
LOC: SDS 08:15
PROVIDERS: ATTEND Surgery
PROC: 0VBF0ZZ Excision of Right Spermatic Cord, Open Approach (ICD-10-PCS; 2023-08-08)
PROC: 0YU50JZ Supplement Right Inguinal Region with Synthetic Substitute, Open Approach (ICD-10-PCS; principal; 2023-08-08 10:45)
DX: K40.90 Unilateral inguinal hernia, without obstruction or gangrene, not specified as recurrent (principal); D17.6 Benign lipomatous neoplasm of spermatic cord; E66.01 Morbid (severe) obesity due to excess calories; Z68.41 Body mass index [BMI] 40.0-44.9, adult; I10 Essential (primary) hypertension
CPT/HCPCS: 49505; 55520; A9270; C1713; J2372; J7120